=== PATIENT | female | born 1950 | race Caucasian/White ===

== ENCOUNTER 2017-08-08 21:44 | Observation (INO) | payer MEDICARE ==
[~2017-08-08] VITALS: Ht 142.2 cm; Wt 81.9 kg
--- NOTE | 2017-08-08 21:50 | NUR ---
ARRIVED TO FLOOR VIA STRETCHER ACCOMPANIED BY EMS. EKG OBTAINED AND PLACED ON TELEMETRY 140-180S FLUTTER. BP 148/84. DR. MIREILLE ROBLERO, AWAITING CALL BACK. CALL LIGHT IN REACH. WILL CONTINUE TO MONITOR. SEE NURSE ASSESSMENT.
[2017-08-08 23:39] VITALS: BP 148/84; Ht 142.2 cm; Wt 81.9 kg
--- NOTE | 2017-08-09 02:20 | NUR ---
CALL LIGHT IN REACH. WILL CONTINUE WITH PLAN OF CARE. 97 FLUTTER ON TELEMETRY
[2017-08-09] MEDS ORDERED: LISINOPRIL2.5 MG (02:39)
--- NOTE | 2017-08-09 02:39 | NUR ---
4-5 SECOND PAUSE NOTED ON TELEMETRY. ASSYOMPTOMATIC. WILL CONTINUE TO MONITOR.
--- NOTE | 2017-08-09 06:55 | NUR ---
NO CHANGES FROM PREVIOUS ASSESSMENT, CALL LIGHT IN REACH. NPO AT THIS TIME
[2017-08-09 08:53] VITALS: BP 134/90
[2017-08-09 10:28] LABS: HEMATOCRIT 44.9 % (36.0-48.0); HEMOGLOBIN 14.5 g/dL (12-16); MCH 30.1 pg (26.0-34.0); MCHC 32.3 g/dL (31.0-37.0); MCV 93.3 fL (80.0-100.0); RBC 4.81 10x6/uL (4.00-5.40); RDW 14.2 % (11.5-14.5)
[2017-08-09 10:41] LABS: ANION GAP 13.7 mmol/L (8-16); CALCIUM 9.5 mg/dL (8.5-10.1); CARBON DIOXIDE 27.4 mmol/L (21.0-32.0); CREATININE - SERUM 1.2 mg/dL (0.6-1.3); POTASSIUM - SERUM 4.1 mmol/L (3.5-5.1)
[2017-08-09 10:43] LABS: APTT 24.1 SECONDS (22.8-39.4); INR 0.96 (0.85-1.17); PROTIME 12.6 SECONDS (11.6-15.0)
[2017-08-09 11:57] VITALS: BP 139/64
--- NOTE | 2017-08-09 14:12 | NUR ---
TO OR PER BED
[2017-08-09 17:07] VITALS: BP 140/72
--- NOTE | 2017-08-09 17:10 | NUR ---
RETURN FROM RR PER BED. LT CHEST DRSG C/D/I. FAMILY AT SIDE,
--- NOTE | 2017-08-09 17:25 | NUR ---
WITHOUT CHANGES OR DISTRESS NOTED AT THSI TIME. DENIES NEEDS.
--- NOTE | 2017-08-09 17:32 | OP ---
PATIENT NAME: BERT LLANES MEDICAL RECORD: [id number] :48 LOCATION:D. D.2114 ADMISSION DATE:08/08/17 SURGEON: BHAVANI TRISTAN MD DATE OF OPERATION: 08/09/2017 SURGEON: Bhavani Tristan MD ANESTHESIA: General endotracheal, Dr. Romero. OPERATION PERFORMED: Permanent pacemaker. PREOPERATIVE DIAGNOSES: Sick sinus syndrome, cardiac pauses greater than 5 seconds. POSTOPERATIVE DIAGNOSES: Sick sinus syndrome, cardiac pauses greater than 5 seconds. INDICATION FOR OPERATION: Cardiac pauses, severe bradycardia. FINDINGS OF THE OPERATION: The pulse generator Medtronic Adapta ADDR01, serial number [id number]. Atrial lead Medtronic model number 4574-45, serial number [id number]. Ventricular lead Medtronic model number 4074-52, serial number [id number]. LEAD ANALYSIS: Atrial lead threshold 0.2 volts, current lead threshold 0.4 milliamps, resistance 601 ohms, P-wave 6.5. Ventricular lead threshold 0.2 volts, current lead threshold 0.2 milliamps, resistance 643 ohms, R-wave 13.4. ESTIMATED BLOOD LOSS: Less than 5 cc. DESCRIPTION OF PROCEDURE: After informed consent and adequate preoperative medication and evaluation, the patient was brought to the operating room, placed on the table in the supine position. After induction of general anesthesia and application of appropriate monitoring devices, the left neck and chest were prepped and draped in a sterile field, utilizing Betadine scrub, alcohol, and Betadine solution. A Betadine-impregnated drape was also used, 1% lidocaine was infiltrated in the left subclavicular space. Incision made and dissection carried down the fascia. Hemostasis maintained with electrocautery. The pacemaker pocket was formed. Subclavian vein was cannulated with the introducers, leads placed in the heart. The above electrophysiologic study was done. The leads were felt to be in good position and the leads were secured. The leads were then connected to the pulse generator and pacemaker placed in the pocket. Pacemaker fired, captured and sensed appropriately. Pocket was irrigated. Instrument count and sponge count were correct times 2. Pocket was closed in layers utilizing 3-0 Vicryl on the deep subcutaneous tissue, 5-0 subcuticular Monocryl on the skin. Sterile dressings were applied. The patient tolerated the procedure well and was transferred to postanesthesia recovery in satisfactory condition. TRANSINT:[id number] Voice Confirmation ID: [id number] DOCUMENT ID: [id number] OPERATIVE REPORT [id number] BERT LLANES EDWARD MD at 1732 CC: [id number] DICTATION DATE: 08/09/17 1604 BIOMEDICAL ENGINEERING TECHNICIAN: 08/09/17 1704 [place] [address]
--- NOTE | 2017-08-09 19:34 | NUR ---
RESUMED CARE OF PT, LYING IN BED RESPIRATIONS EVEN AND UNALBORED ON 2LPM VIA NC. 78 FLUTTER WITH PACED BEATS. RIGHT AND LEFT HAND SALINE LOCKED. LEFT CHEST INCISION C/D/I SOME SWELLING NOTED WILL COMTINUE TO MONITOR. LEFT ARM IN SLING. CALL LIGHT IN REACH. SEE NURSE ASSESSMENT
--- NOTE | 2017-08-09 19:58 | NUR ---
84 SR ON TELEMETRY
--- NOTE | 2017-08-09 20:04 | NUR ---
SWELLING TO CHEST INCISION IS INCREASING, NOTIFYING DR. ALEJANDRA.
--- NOTE | 2017-08-09 20:20 | NUR ---
HEMATOMA MARKED AND ICE PACK APPLIED. RAISED HOB TO 60 DEGREES. SPOUSE AT BEDSIDE. CALL LIGHT IN REACH. WILL CONTINUE TO MONITOR.
[2017-08-09 21:18] VITALS: BP 171/91
--- NOTE | 2017-08-09 21:37 | NUR ---
NO CHANGES TO HEMATOMA AT THIS TIME, WILL CONTINUE TO MONITOR.
[2017-08-10 01:16] VITALS: BP 164/79
[2017-08-10 04:49] VITALS: BP 149/60
--- NOTE | 2017-08-10 05:38 | NUR ---
LYING IN BED WITH CALL LIGHT IN REACH. WILL CONTINUE WITH PLAN OF CARE.
--- NOTE | 2017-08-10 06:38 | NUR ---
HEMATOMA IS STILL PRESENT TO LEFT CHEST WALL, NO CHANGES FROM PREVIOUS ASSESSMENT. CALL LIGHT IN REACH. WILL CONTINUE TO MONITOR.
--- NOTE | 2017-08-10 07:57 | NUR ---
ASSESSMENT DONE. FAMILY AT SIDE.
[2017-08-10 08:00] VITALS: BP 118/73
[2017-08-10 12:00] VITALS: BP 151/66
--- NOTE | 2017-08-10 15:15 | NUR ---
TO OR PER BED
--- NOTE | 2017-08-10 18:21 | NUR ---
FAMILY AT SIDE. WITHOUT CHANGES OR DISTRESS NOTED AT THIS TIME.
--- NOTE | 2017-08-10 20:23 | NUR ---
INITIAL ROUNDS COMPLETED AT 1915 HRS. PT DENIED ANY DISCOMFORT. ASSESSMENT COMPLETED AT 1950 HRS. SR PER CM HR 75. IV TO RFA SL. L ANTERIOR CHEST WALL DRESSING CLEAN. DRY AND INTACT. BRUISING NOTED AROUND DRESSING. L ARM IN SLING. LUNGS CTA. PT DENIES ANY DISCOMFORT. FAMILY AT BEDSIDE. JOSELUIS HOSE IN USE. NO BREAKDOWN NOTED. TOES PINK AND WARM WITH BILAT BRISL CAP REFILL TO TOENAILS. SR UP X2, CALL LIGHT WITHIN REACH.
[2017-08-10 21:01] VITALS: BP 161/77
--- NOTE | 2017-08-10 21:50 | NUR ---
O2 SAT RUNNING 88-90%. O2 2LNC PLACED WITH O2 SAT TO 95%. WILL CONTINUE TO MONITOR.
--- NOTE | 2017-08-10 23:51 | NUR ---
PT UP TO BR WITH ASSSIT. VOIDED YELLOW URINE. BACK TO BED WITH ASSIST. PT STATEDSHE VOMITED SOME BILE COLORED SECRETIONS. STATED HAS NOT HAD MUCH TO EAT LAST FEW DAYS. ORANGE SHERBERT AND [place] SODA GIVEN. INFORMED TO NIBBLE ON ICE CREAM AND TAKE SMALL SIPS OF SODA. STATED UNDERSTANDING.
[2017-08-11] VITALS: BP 150/69
--- NOTE | 2017-08-11 02:11 | NUR ---
PT RESTING WITH EYES CLOSED. RESP EVEN AND REGULAR. O2 SAT 93% ON RA. FAMILY AT BEDSIDE. SR UP X2, CALL LIGHT WITHIN REACH.
[2017-08-11 04:00] VITALS: BP 130/58
--- NOTE | 2017-08-11 04:06 | NUR ---
PT AWKAE; DENIES ANY DISCOMFORT. NO CAHNGES TO R ANTERIOR CHEST WALL INCISION SITE. PT DENIES ANY N/V AT HTIS TIME. WILL CONTINUE TO MONIOTR. SR UP X2 CALL LIGHT WITHIN REACH.
--- NOTE | 2017-08-11 05:29 | NUR ---
VSS. PACED RHYTHM PER CM. PT DENIES ANY DISCOMFOFT. NEEDS MET; WILL CONTINUE TO MONITOR.
[2017-08-11 08:00] VITALS: BP 147/65
--- NOTE | 2017-08-11 08:20 | NUR ---
ASSESSMENT COMPLETED. TELEMERTY SHOWS SR 68. PACEMAKER TO LEFT CHEST WITH DRSG DRY AND INTACT. LEFT AEM IN SLING. UP WITH ASSIST. JOSELUIS ALEJANDRO ON. FAMILY AT BEDSIDE. DENIES ANY NEEDS. SR UP WITH CALL LIGHT IN REACH
[2017-08-11] MEDS ORDERED: BETAPACE 80 MG80 MG PO (09:49)
--- NOTE | 2017-08-11 11:03 | NUR ---
PT DISCHARGED. IV DCD WITH TIP INTACT. INSTRUCTIONS GIVEN TO PT AND . TO PRIVATE CAR PER WHEELCHAIR
--- NOTE | 2017-08-11 12:55 | OP ---
PATIENT NAME: BERT LLANES MEDICAL RECORD: [id number] :48 LOCATION:D.M2 D.2114 ADMISSION DATE:08/08/17 SURGEON: BHAVANI TRISTAN MD DATE OF OPERATION: 08/10/2017 SURGEON: Bhavani Tristan MD ANESTHESIA: General, Dr. Guy. OPERATION PERFORMED: Pacemaker pocket exploration for postoperative hematoma. PREOPERATIVE DIAGNOSIS: Pacemaker pocket hematoma. POSTOPERATIVE DIAGNOSIS: Pacemaker pocket hematoma. INDICATION FOR OPERATION: Pacemaker pocket hematoma. FINDINGS AT OPERATION: There was no active bleeding. The pocket was irrigated with antibiotic solution. DESCRIPTION OF PROCEDURE: After informed consent and adequate preoperative medication and evaluation, the patient was brought to the operating room, placed on the table in the supine position. After induction of general anesthesia, the left chest prepped and draped in a sterile field, utilizing Betadine scrub, alcohol, and Betadine solution. A Betadine-impregnated drape was also used. The previous incision was opened. The hematoma was removed. The device was also explanted but not disconnected from the leads. Pocket was irrigated. All old clot removed. There was no fresh active bleeding. The instrument count and sponge count were correct times 2. The pacemaker placed back in the pocket and secured to the muscle. Pocket was again irrigated. Instrument count and sponge count were correct times 2. Pocket was closed in layers utilizing 3-0 Vicryl on deep subcutaneous tissue and 5-0 subcuticular Monocryl on the skin. Sterile dressings were applied. The patient tolerated the procedure well and transferred to postanesthesia recovery in satisfactory condition. TRANSINT:[id number] Voice Confirmation ID: [id number] DOCUMENT ID: [id number] BHAVANI TRISTAN MD at 1255 CC: [id number] DICTATION DATE: 08/10/17 164 FURNITURE POLISHER: 08/10/17 193 DIS IN 08/11/17 [id number] [place] [address]
== END 2017-08-11 11:05 | disposition home or self-care (01) ==
LOC: D.M2 21:44 → OBSVTIME 21:44 → D.M2 08-11 11:05
PROVIDERS: Internal Medicine Cardiovascular Disease; ADMIT Internal Medicine Interventional Cardiology
DX: I49.5 Sick sinus syndrome (principal); I10 Essential (primary) hypertension; I25.10 Atherosclerotic heart disease of native coronary artery without angina pectoris; Z87.891 Personal history of nicotine dependence; E78.5 Hyperlipidemia, unspecified; I48.91 Unspecified atrial fibrillation; L76.32 Postprocedural hematoma of skin and subcutaneous tissue following other procedure; Y83.8 Other surgical procedures as the cause of abnormal reaction of the patient, or of later complication, without mention of misadventure at the time of the procedure

== ENCOUNTER → 2018-10-28 11:43 | Outpatient (CLI) | payer MEDICARE ==
[2017-08-08 23:39] VITALS: BMI 40.9
[~2018-10-28 11:43] MED LIST: BETAPACE 80 MG80 MG PO; CARDIZEM 90 MG90 MG PO; LISINOPRIL2.5 MG
== END | disposition home or self-care (01) ==
LOC: D.HCCARDIO 11:43
DX: I48.91 Unspecified atrial fibrillation (principal)

== ENCOUNTER 2018-11-06 11:22 | Outpatient (CLI) | payer MEDICARE ==
[~2018-11-06] VITALS: Ht 142.2 cm; Wt 79.5 kg
--- NOTE | ~2018-11-06 | HEMODYNAMI ---
PATIENT:BERT LLANES MEDICAL RECORD: [id number] : 48 LOCATION:DNIRAJ ADMISSION DATE: 11/06/18 Generatedon:11/06/201815:12 Patient name: BERT LLANES Patient #: [id number] SSN: : 1950 Date of study: 11/06/2018 Page: Of Hemodynamic Procedure Report Patient Data Patient Demographics Procedure consent was obtained First Name: BERT Gender: Female Last Name: SHRADDHA : 1950 Middle Initial: F Age: 68 year(s) Patient #: [id number] Race: Unknown Additional ID: [id number] Contact details [address]: [address] [place] [address] State: [place] City: [place] Zip code: [address] Admission Admission Data Admission Date: 11/06/2018 Admission Time: 11:22 Procedure Procedure Types Cath Procedure Diagnostic Procedure LHC LHC w/Coronaries Sedation Charges Moderate Sedation up to 15 minutes Procedure Description Procedure Date Procedure Date: 11/06/2018 Procedure Start Time: 14:49 Procedure End Time: 15:12 Procedure Staff Name Function Sean Enrique MD Performing Physician Gabriel Wilson RN Nurse Flori Lentz RT Monitor Megan Gracia RT Scrub Procedure Data Cath Procedure Fluoroscopy Diagnostic fluoroscopy Total fluoroscopy Time: 6.6 time: 6.6 min min Diagnostic fluoroscopy Total fluoroscopy dose: 747 dose: 747 mGy mGy Contrast Material Contrast Material Type Amount (ml) Isovue 300 62 Entry Location Entry Primary Successful Side Size Upsize Upsize Entry Closure Trivdei ccessful Closure Location (Fr) 1 (Fr) 2 (Fr) Remarks Device Remarks Radial Right 6 Fr Mechanical artery Short Compression Estimated blood loss: 5 ml Diagnostic catheters Device Type Used For End Catheter Placement DIAGNOSTIC 5FR Infinity LV Angiography RBL-TG ([id number]) DIAGNOSTIC 5FR Infinity Left Coronary RBL-TG ([id number]) Angiography DIAGNOSTIC 5FR Infinity Right Coronary RBL-TG ([id number]) Angiography DIAGNOSTIC AR1 MOD 5Fr Right Coronary catheter ([id number]) Angiography DIAGNOSTIC AR2 MOD 5 Fr Right Coronary catheter ([id number]) Angiography Procedure Complications No complications Procedure Medications Medication Administration Route Dosage 0.9% NaCl I.V. 100 ml/hr Oxygen etCO2 Nasal cannula 2 l/min Heparin Flush Bag added to field 2 bags (1000units/500ml NS) Lidocaine 2% added to field 20 Radial Cocktail added to field 1 syringe (Verapomil 2mg/Nitro 400mcg/Heparin 1500units) Versed I.V. 1 mg Fentanyl I.V. 50 mcg Versed I.V. 1 mg Fentanyl I.V. 50 mcg Radial Cocktail I.A. 1 syringe (Verapomil 2mg/Nitro 400mcg/Heparin 1500units) Hemodynamics Rest Heart Rate: 60 (bpm) Pressure Samples Time Site Value (mmHg) Purpose Heart Use Rate(bpm) 14:54 LV 114/2,14 EDP 60 14:54 AO 97/26(53) Snapshot 60 Gradients Valve Time Site Site Mean SEP/DFP Peak To Heart Use 1 2 (mmHg) (sec/min) Peak Rate (mmHg) (bpm) Aortic 14:54 LV AO 60 Snapshots Pre Cath Intra NCS Post Cath Vital Signs Time Heart Resp SPO2 etCO2 NIBP Rhythm Pain Sedation Rate (ipm) (%) (mmHg) (mmHg) Status Level (bpm) 14:27:17 60 17 98 36.3 129/65(96) NSR 0 (11) 10(A) , No pain 14:31:31 60 17 98 34.7 125/67(93) NSR 0 (11) 10(A) , No pain 14:35:43 60 15 98 29.5 130/70(91) NSR 0 (11) 10(A) , No pain 14:39:59 60 16 94 42.3 113/62(79) NSR 0 (11) 10(A) , No pain 14:44:09 60 12 94 42.3 117/56(94) NSR 0 (11) 10(A) , No pain 14:48:21 60 12 95 40.8 118/59(84) NSR 0 (11) 10(A) , No pain 14:52:35 60 10 93 25.6 87/40(79) NSR 0 (11) 10(A) , No pain 14:56:37 60 18 93 40 101/56(78) NSR 0 (11) 9(A) , No pain 15:00:44 60 19 92 37.8 115/50(73) NSR 0 (11) 9(A) , No pain 15:04:54 60 14 92 42.3 111/60(81) NSR 0 (11) 9(A) , No pain 15:09:06 60 13 92 34 110/52(79) NSR 0 (11) 9(A) , No pain Medications Time Medication Route Dose Verified Delivered Reason Notes Effectiveness by by 14:26:37 0.9% NaCl I.V. 100 Gabriel Gabriel Per ml/hr Steve Wilson physician RN RN 14:26:47 Oxygen etCO2 2 l/min Gabriel Gabriel Per Nasal Steve Wilson physician cannula RN RN 14:26:58 Heparin Flush added 2 bags Gabriel Gabriel used for Bag to Lordemetria Wilson procedure (1000units/500ml RN RN NS) 14:27:09 Lidocaine 2% added 20ml Gabriel Gabriel for local to vial Lorigan Steve anesthetic RN RN 14:27:22 Radial Cocktail added 1 Gabriel Gabriel used for (Verapomil to syringe Steve Wilson procedure 2mg/Nitro field SANTOS RN 400mcg/Heparin 1500units) 14:46:22 Versed I.V. 1 mg Gabriel Gabriel for sedation Steve Wilson RN RN 14:46:30 Fentanyl I.V. 50 mcg Gabriel Gabriel for sedation Steve Wilson RN RN 14:50:11 Versed I.V. 1 mg Gabriel Gabriel for sedation Steve Wilson RN RN 14:50:17 Fentanyl I.V. 50 mcg Gabriel Gabriel for sedation Steve Wilson RN RN 14:51:21 Radial Cocktail I.A. 1 Gabriel Sean for (Verapomil syringe Steve salamanca 2mg/Nitro RN 400mcg/Heparin 1500units) Procedure Log Time Note 14:13:09 Diagnostic Cath Status : Elective 14:13:34 Gabriel Wilson RN sent for patient. Start room use. 14:13:35 Time tracking: Regular hours (M-F 7:00 - 5:00) 14:13:39 Plan of Care:Hemodynamics will remain stable., Cardiac rhythm will remain stable., Comfort level will be maintained., Respiratory function will remain adequate., Patient/ family verbilizes understanding of procedure., Procedure tolerated without complication., Recovers from procedure without complications.. 14:15:33 Patient received from Pre/Post Procedure Room to CCL 2 Alert and oriented. Tansferred to table in Supine position. 14:15:35 Warm blankets applied, and sharri hugger turned on for patient comfort. 14:15:35 Correct patient and procedure confirmed by team. 14:15:36 Signed procedure consent form obtained from patient. 14:15:37 ECG and BP/O2 sat monitors applied to patient. 14:26:11 Vital chart was started 14:26:12 Baseline sample Acquired. 14:26:14 Rhythm: unchanged. 14:26:16 Full Disclosure recording started 14:26:20 H&P Date Dictated: 11/06/2018 Within 30 days and on chart., H&P Addendum completed by physician on day of procedure. (MUST COMPLETE FOR ALL OUTPATIENTS). 14:26:21 Pre-procedure instructions explained to patient. 14:26:21 Pre-op teaching completed and patient verbalized understanding. 14:26:25 Family in patients room. 14:26:26 Patient NPO since Midnight. 14:26:28 Is the patient allergic to Iodine/contrast media? No. 14::29 Was the patient premedicated? No 14:26:30 Is patient on blood thinner?No 14:26:35 Patient diabetic? No. 14:26:37 0.9% NaCl 100 ml/hr I.V. was administered by Gabriel Wilson RN; Per physician; 14::38 Previous problem with sedation/anesthesia? No ? 14:26:40 Snore? Yes 14:26:41 Sleep apnea? No 14:26:42 Deviated septum? No 14::44 Opens mouth fully? Yes 14:26:46 Sticks out tongue? Yes 14:26:47 Oxygen 2 l/min etCO2 Nasal cannula was administered by Gabriel Wilson RN; Per physician; 14::47 Airway obstruction? No ? 14:26:51 Dentures? Yes out 14:26:54 Pre procedure: right dorsailis pedis pulse 1+ Palpable, but thready & weak; easily obliterated 14:26:57 Pre procedure: left dorsailis pedis pulse 1+ Palpable, but thready & weak; easily obliterated 14:26:58 Heparin Flush Bag (1000units/500ml NS) 2 bags added to field was administered by Gabriel Wilson RN; used for procedure; 14:26:59 Patient pain scale 0/10 ?. 14:27:09 Lidocaine 2% 20ml vial added to field was administered by Gabriel Wilson RN; for local anesthetic; 14:27:09 IV patent on arrival in left forearm with 0.9% NaCl at [facility]. 14:27:12 Lab results completed and on chart. 14:27:16 Right Radial & Right Groin area was prepped with chlora-prep and draped in sterile fashion 14:27:17 Alarms reviewed by R. N. 14:27:17 Sharps counted by scrub and verified by R.N. 14:27:22 Radial Cocktail (Verapomil 2mg/Nitro 400mcg/Heparin 1500units) 1 syringe added to field was administered by Gabriel Wilson RN; used for procedure; 14:35:17 Use device set Radial Dx or PCI 14:35:19 ACIST Syringe (58738) opened to sterile field. 14:35:19 Medline Cath Pack ([id number]) opened to sterile field. 14:35:20 Bag Decanter (2002) opened to sterile field. 14:35:20 DIAGNOSTIC WIRE .035 260cm J wire (823040) opened to sterile field. 14:35:21 ACIST Hand Control (41703) opened to sterile field. 14:35:21 ACIST Manifold (54536) opened to sterile field. 14:35:22 Tegaderm 4 x 4 (1626W) opened to sterile field. 14:35:23 MBrace Wrist Support ([id number]) opened to sterile field. 14:35:35 SHEATH 6FR RAIN (9043272) NO COST SUPPLY opened to sterile field. 14:40:27 Zero performed for pressure channel P1 14:45:08 Zero performed for pressure channel P1 14:45:44 Final Timeout: patient, procedure, and site verified with staff and physician. All members of the team are in agreement. 14:45:50 Right Radial site verified by team. 14:45:52 Physical assessment completed. ASA score P 2 - A patient with mild systemic disease as per Sean Enrique MD. 14:45:56 Sedation plan: IV Moderate Sedation Medication:Versed, Fentanyl 14:46:22 Versed 1 mg I.V. was administered by Gabriel Wilson RN; for sedation; 14:46:30 Fentanyl 50 mcg I.V. was administered by Gabriel Wilson RN; for sedation; 14:49:13 Procedure started. 14:49:28 Local anesthetic to right radial artery with Lidocaine 2% by Sean Enrique MD.INITIAL ACCESS ONLY 14:50:11 Versed 1 mg I.V. was administered by Gabriel Wilson RN; for sedation; 14:50:17 Fentanyl 50 mcg I.V. was administered by Gabriel Wilson RN; for sedation; 14:50:40 A 6 Fr Short sheath was inserted into the Right Radial artery 14:51:21 Radial Cocktail (Verapomil 2mg/Nitro 400mcg/Heparin 1500units) 1 syringe I.A. was administered by Sean Enrique MD; for vasodilation; 14:53:54 A DIAGNOSTIC 5FR Infinity RBL-TG ([id number]) was advanced over the wire and used for LV Angiography. 14:54:20 LV gram done using RICK 14:54:23 Injector settings: Ml/sec: 5, Volume: 15, 14:54:35 EF : 55 % 14:54:37 LV hemodynamics recorded. 14:56:09 A DIAGNOSTIC 5FR Infinity RBL-TG ([id number]) was advanced over the wire and used for Left Coronary Angiography. 14:58:26 A DIAGNOSTIC 5FR Infinity RBL-TG ([id number]) was advanced over the wire and used for Right Coronary Angiography. removed, unable to cannulate 14:59:43 A DIAGNOSTIC AR1 MOD 5Fr catheter ([id number]) was advanced over the wire and used for Right Coronary Angiography.unable to cannulate 15:02:32 Catheter removed. 15:02:47 A DIAGNOSTIC AR2 MOD 5 Fr catheter ([id number]) was advanced over the wire and used for Right Coronary Angiography. 15:06:11 Catheter removed. 15:06:41 Sheath removed intact; hemostasis achieved with Mechanical Compression to the Right Radial artery. 15:06:43 Procedure ended.(Physican Out) 15:07:24 Fluoroscopy time 06.60 minutes. 15:07:28 Flurop Dose total: 747 15:07:28 Fluoroscopy dose: 747 mGy 15:07:54 Contrast amount:Isovue 300 62ml. 15:07:55 Sharps counted by scrub and verified by R.N. 15:07:57 TR band inflated with 12cc of air. 15:07:58 Insertion/operative site no bleeding no hematoma. 15:08:03 Post right radial artery:stable, clean and dry 15:08:04 Post Procedure Pulses reassessed and unchanged 15:08:07 Post-procedure physical assessment completed. ASA score P 2 - A patient with mild systemic disease as per Sean Enrique MD. 15:08:09 Post procedure rhythm: unchanged. 15:08:24 Estimated blood loss: 5 ml 15:08:25 Post procedure instruction explained to patient.Patient verbalizes understanding. 15:08:25 Patient needs reinforcement of post procedure teaching. 15:08:59 Procedure type changed to Cath procedure, Diagnostic procedure, LHC, LHC w/Coronaries, Sedation Charges, Moderate Sedation up to 15 minutes 15:09:05 Procedure Complication : No complications 15:09:06 See physician's report for complete and final results. 15:09:18 TR BAND Standard ([id number]) opened to sterile field. 15:12:08 Procedure and supply charges have been captured, reviewed, submitted and are correct. 15:12:08 Vital chart was stopped 15:12:10 Report given to Pre/Post Procedure Room. 15:12:12 Patient transfered to Pre/Post Procedure Room with Stretcher. 15:12:20 Procedure ended. 15:12:20 Full Disclosure recording stopped 15:12:24 End room use (Document Last) Device Usage Item Name Manufacture Quantity Catalog Hospital Part Current Minimal Lot# / Number Charge Number Stock Stock Serial# Code ACIST Acist 1 19321 508484 841370 066375 20 Syringe Medical (08222) Systems Inc Medline Medline 1 [id number] 669986 34209 980101 5 Cath Pack ([id number]) Bag Microtek 1 103660 77008 678082 5 Decanter Medical Inc. () DIAGNOSTIC St Nithin 1 156437 135900 814635 835648 30 WIRE .035 260cm J wire (912829) ACIST Hand Acist 1 93149 903917 690555 077277 5 Control Medical (52155) Systems Inc ACIST Acist 1 04568 550535 332442 414374 5 Manifold Medical (44947) Systems Inc Tegaderm 4 3M 1 1626W 782874 358879 978969 5 x 4 (1626W) MBrace Advanced 1 140-0250-00 174130 06334 819857 5 Wrist Vascular Support Dynamics ([id number]) SHEATH 6FR Cardinal 1 8205405 340957 098871 5 [facility] ([id number]) NO COST SUPPLY DIAGNOSTIC Cardinal 1 [id number] 056436 546105 5 5FR Health Infinity RBL-TG (434771Q0) DIAGNOSTIC Cardinal 1 [id number] 787481 952965 243827 15 AR1 MOD 5Fr Health catheter (851212I) DIAGNOSTIC Cardinal 1 [id number] 802639 196631 909636 20 AR2 MOD 5 Health Fr catheter (932427L) TR BAND Terumo 1 [id number] 693841 269249 402095 40 Standard ([id number]) Signature Audit [place] Stage Time Signature Unsigned Intra-Procedure 11/06/2018 Flori 3:12:36 PM Counts RT(R) Signatures Monitor : Flori Signature : Counts RT Date : Time : [address] [place] [address]
[~2018-11-06 11:22] MED LIST changes: -CARDIZEM 90 MG90 MG PO
[2018-11-06] MEDS ORDERED: CARDIZEM 90 MG90 MG PO (11:48)
[2018-11-06 11:53] VITALS: BP 143/64; Ht 142.2 cm; Wt 79.5 kg
[2018-11-06 12:07] LABS: BASOPHILS 0.4 % (0-2); EOSINOPHILS 4.7 % (0-7); HEMATOCRIT 39.9 % (36.0-48.0); HEMOGLOBIN 12.6 g/dL (12-16); IMMATURE GRANULOCYTES 0.2 % (0-5); LYMPHOCYTES 27.5 % (15-50); MCH 29.4 pg (26.0-34.0); MCHC 31.6 g/dL (31.0-37.0); MCV 93.2 fL (80.0-100.0); MEAN PLATELET VOLUME 9.5 fL (7.4-10.4); NEUTROPHILS 58.2 % (40-80); PLATELET COUNT 369 10x3/uL (130-400); RBC 4.28 10x6/uL (4.00-5.40); RDW 13.9 % (11.5-14.5); WBC 9.1 10x3/uL (4.8-10.8)
[2018-11-06 12:29] LABS: ANION GAP 13.1 mmol/L (8-16); CALCIUM 8.9 mg/dL (8.5-10.1); CARBON DIOXIDE 26.3 mmol/L (21.0-32.0); CREATININE - SERUM 1.1 mg/dL (0.6-1.3); POTASSIUM - SERUM 4.4 mmol/L (3.5-5.1)
--- NOTE | 2018-11-06 15:35 | NUR ---
2L NC, NO RESP DISTRESS. RIGHT WRIST TR BAND CDI, NO BLEEDING OR HEMATOAM NOTED. NO C/O PAIN OR NAUSEA. VSS. FAMILY AT BEDSIDE, CALL LIGHT WITHIN REACH.
--- NOTE | 2018-11-06 16:05 | NUR ---
RESTING QUIETLY WITH EYES CLOSED. RIGHT WRIST TR BAND CDI, NO BLEEDING OR HEMATOMA NOTED. DENIES ANY NEEDS AT THIS TIME. VSS. WILL CONTINUE TO MONITOR.
--- NOTE | 2018-11-06 16:20 | NUR ---
3CC OF AIR REMOVED FROM TR BAND WITH NO BLEEDING NOTED. VSS. WILL CONTINUE TO MONITOR.
--- NOTE | 2018-11-06 16:34 | NUR ---
3CC OF AIR REMOVED FROM TR BAND WITH NO BLEEDING NOTED.
--- NOTE | 2018-11-06 16:50 | NUR ---
2CC OF AIR REMOVED FROM TR BAND WITH NO BLEEDING NOTED. SIPPING ON DRINK AND EATING SANDWICH WITH NO C/O NAUSEA. VSS. WILL CONTINUE TO MONITOR.
--- NOTE | 2018-11-06 17:05 | NUR ---
LEFT PIV D/C'D WITH CATHETER INTACT, BAND AID TO SITE. UP TO BEDSIDE TO GET DRESSED. AMBULATED TO RESTROOM.
--- NOTE | 2018-11-06 17:15 | NUR ---
REMAINING AIR REMOVED FROM TR BAND WITH NO BLEEDING NOTED. DRESSING PLACED TO SITE. DISCHARGE INSTRUCTIONS GIVEN, VERBALIZED UNDERSTANDING.
--- NOTE | 2018-11-06 17:25 | NUR ---
TAKEN OUT VIA WHEELCHAIR BY CATH FRAME HAND. LEFT FACILITY WITH FAMILY AND ALL PERSONAL BELONGINGS.
== END 2018-11-06 17:25 | disposition home or self-care (01) ==
LOC: D.CATH 11:22
PROVIDERS: Internal Medicine Cardiovascular Disease
DX: I25.10 Atherosclerotic heart disease of native coronary artery without angina pectoris (principal); I48.91 Unspecified atrial fibrillation; Z01.812 Encounter for preprocedural laboratory examination